=== PATIENT | male | born 2000 | race Caucasian/White ===

== ENCOUNTER 2024-11-23 01:16 | Inpatient (IN) | payer MEDICAID ==
[~2024-11-23] VITALS: Ht 165.1 cm; Wt 66.2 kg
[2024-11-23 01:54] LABS: PLATELET COUNT (AUTO) 254 K/uL (150-450); RED BLOOD CELL COUNT(AUTO) 4.55 MIL/uL (4.50-5.90); RED CELL DISTRIBUTION WIDTH 13.7 % (11.5-14.5); WHITE BLOOD COUNT (AUTO) 6.8 K/uL (4.5-11.0)
[2024-11-23 02:12] LABS: CALCIUM, TOTAL 8.2 mg/dL (8.8-10.5); CREATININE 0.90 mg/dL (0.60-1.30); GLOMERULAR FILTR. RATE CALC > 60 mL/min (>60); GLUCOSE,RANDOM 100 mg/dL (70-110); SODIUM SERUM 140 mmol/L (136-145); UREA NITROGEN, BLOOD 17 mg/dL (7-18)
[2024-11-23 02:55] LABS: COVID AG,FIA SOURCE NASAL SWAB
[2024-11-23 03:20] LABS: SARS-COV2 (COVID) ANTIGEN,FIA Negative (Negative)
[2024-11-23 13:45] VITALS: O2SAT 100
[2024-11-23 14:12] LABS: APPEARANCE,URINE CLEAR (CLEAR); GLUCOSE, URINE (UA) NEGATIVE (NEGATIVE); LEUKOCYTE ESTERASE ,URINE NEGATIVE (NEGATIVE); NITRATE,URINE NEGATIVE (NEGATIVE); OCCULT BLOOD,URINE NEGATIVE (NEGATIVE); PH,URINE DRUG SCREEN 7.0 (5.0-8.0); SPECIFIC GRAVITIY, URINE 1.013 (1.003-1.030)
[2024-11-23 14:18] LABS: ALCOHOL, URINE DRUG SCREEN NEGATIVE (NEGATIVE); AMPHET/METH SCREEN,URINE NEGATIVE (NEGATIVE); BARBITURATE SCREEN, URINE NEGATIVE (NEGATIVE); CANNABINOID SCREEN,URINE POSITIVE (NEGATIVE); COCAINE SCREEN,URINE NEGATIVE (NEGATIVE); METHADONE SCREEN, URINE NEGATIVE (NEGATIVE)
[2024-11-23 16:54] VITALS: BP 104/64; PULSE 71; RESP 16; TEMP 97.5; O2SAT 97
[2024-11-23 20:31] VITALS: BP 102/66; PULSE 80; RESP 17; TEMP 97.8; O2SAT 98
[2024-11-24] MEDS ORDERED: GuaiFENesin/D-METHORPHAN [SUGAR-FREE] 200-20MG/10 ML SYRUP UDCUP PO PRN (06:15)
[2024-11-24] MEDS ORDERED: MAGNESIUM HYDROXIDE SUSPENSION 30 ML UDCUP PO PRN (06:15)
[2024-11-24] MEDS ORDERED: LOPERAMIDE HCL 2 MG CAPSULE PO PRN (06:15)
[2024-11-24] MEDS ORDERED: MAG HYDROX/ALUMINUM HYD/SIMETH ES 30 ML SUSPENSION UDCUP PO PRN (06:15)
[2024-11-24] MEDS ORDERED: ALBUTEROL SULFATE HFA 90 MCG/PUFF 8 GM INHALER IH PRN (06:15)
[2024-11-24] MEDS ORDERED: PETROLATUM,WHITE 28 GM JELLY TP PRN (06:15)
[2024-11-24] MEDS ORDERED: ONDANSETRON 4 MG TABLET PO PRN (06:15)
[2024-11-24] MEDS ORDERED: DOCUSATE SODIUM 100 MG CAPSULE PO PRN (06:15)
[2024-11-24] MEDS ORDERED: LORazepam 2 MG/ML VIAL ONE (08:34)
[2024-11-24 08:45] VITALS: BP 103/66; PULSE 70; RESP 16; TEMP 97.4; O2SAT 100
[2024-11-24] MEDS: LORazepam 2 MG/ML VIAL IM ONE (09:06)
[2024-11-24 10:32] LABS: CHOL/HDL RATIO 2.2 (4.2-7.3); LDL CHOL (CALC.) 48.0 mg/dL (0-130)
[2024-11-24 20:14] VITALS: BP 115/70; PULSE 75; RESP 17; TEMP 97.5; O2SAT 100
[2024-11-25 08:05] VITALS: BP 108/83; PULSE 82; RESP 16; TEMP 97.9; O2SAT 100
[2024-11-25 09:16] LABS: CHOL/HDL RATIO 2.4 (4.2-7.3); LDL CHOL (CALC.) 66.0 mg/dL (0-130)
[2024-11-25] MEDS ORDERED: LORazepam 2 MG/ML VIAL ONE (11:02)
[2024-11-25] MEDS: LORazepam 2 MG/ML VIAL IM ONE (11:17)
[2024-11-25 20:01] VITALS: RESP 17
[2024-11-25] MEDS: ZOLPIDEM TARTRATE 10 MG TABLET PO PRN (20:56)
[2024-11-26 08:08] VITALS: BP 125/74; PULSE 81; RESP 17; TEMP 97.4; O2SAT 98
[2024-11-26] MEDS ORDERED: LORazepam 2 MG/ML VIAL ONE (09:40)
[2024-11-26] MEDS: LORazepam 2 MG/ML VIAL IM ONE ×3 (09:52→18:03)
[2024-11-26 20:09] VITALS: BP 124/74; PULSE 91; RESP 16; TEMP 97.7; O2SAT 100
[2024-11-26 21:02] VITALS: BP 104/67; PULSE 70; RESP 16; TEMP 97.6; O2SAT 99
[2024-11-27] MEDS ORDERED: NICOTINE 14 MG/24 HOUR PATCH TD PRN (06:30)
[2024-11-27 08:12] VITALS: BP 111/69; PULSE 101; RESP 18; TEMP 97.7; O2SAT 98
[2024-11-27] MEDS ORDERED: LORazepam 2 MG/ML VIAL ONE (11:04)
[2024-11-27] MEDS: LORazepam 2 MG/ML VIAL IM ONE (11:29)
[2024-11-27 20:32] VITALS: BP 96/98; PULSE 125; RESP 16; TEMP 98.2; O2SAT 98
[2024-11-28 08:59] VITALS: BP 111/70; PULSE 86; RESP 17; TEMP 97.4; O2SAT 99
[2024-11-28] MEDS: NICOTINE POLACRILEX 2 MG LOZENGE PO PRN (18:53)
[2024-11-28 20:01] VITALS: BP 114/59; PULSE 70; RESP 16; TEMP 97.6; O2SAT 100
[2024-11-29 08:03] VITALS: BP 116/66; PULSE 64; RESP 16; TEMP 97.8; O2SAT 99
[2024-11-29 20:05] VITALS: BP 103/63; PULSE 93; RESP 18; TEMP 97.3; O2SAT 99
[2024-11-30 08:21] VITALS: BP 130/79; PULSE 109; RESP 16; TEMP 97.5; O2SAT 98
[2024-11-30] MEDS: NICOTINE 14 MG/24 HOUR PATCH TD PRN (13:40)
[2024-11-30 20:05] VITALS: BP 124/70; PULSE 99; RESP 18; TEMP 97.3
[2024-12-01 08:51] VITALS: BP 130/77; PULSE 86; RESP 18; TEMP 97.5; O2SAT 99
[2024-12-01 20:09] VITALS: BP 118/72; PULSE 70; RESP 16; TEMP 97.9; O2SAT 99
[2024-12-02 08:12] VITALS: BP 114/66; PULSE 86; RESP 18; TEMP 97.7; O2SAT 97
[2024-12-02 12:53] VITALS: RESP 18
[2024-12-02] MEDS: IBUPROFEN 400 MG TABLET PO PRN (12:53)
[2024-12-02 13:53] VITALS: RESP 18
[2024-12-02 20:35] VITALS: BP 115/62; PULSE 66; RESP 18; TEMP 97.5; O2SAT 100
[2024-12-03 08:14] VITALS: BP 120/74; PULSE 107; RESP 17; TEMP 97.4; O2SAT 97
[2024-12-03 20:36] VITALS: BP 131/84; PULSE 97; RESP 17; TEMP 98.6; O2SAT 99
[2024-12-04 08:38] VITALS: BP 113/77; PULSE 90; RESP 15; TEMP 97.6; O2SAT 99
[2024-12-04 20:14] VITALS: BP 119/77; PULSE 74; RESP 18; TEMP 97.8; O2SAT 97
[2024-12-05 08:43] VITALS: BP 123/70; PULSE 94; RESP 18; TEMP 97.7; O2SAT 99
[2024-12-05 20:10] VITALS: BP 116/66; PULSE 73; RESP 18; TEMP 97.8; O2SAT 100
[2024-12-05 22:19] VITALS: BP 133/79; PULSE 60; RESP 18; TEMP 97.8; O2SAT 100
[2024-12-05] MEDS: ACETAMINOPHEN 325 MG TABLET PO PRN (22:19)
[2024-12-06 03:11] VITALS: RESP 16
[2024-12-06 08:18] VITALS: BP 117/75; PULSE 90; RESP 18; TEMP 96.7; O2SAT 95
[2024-12-06 17:34] VITALS: RESP 18
[2024-12-06 18:35] VITALS: RESP 18
[2024-12-06 20:31] VITALS: BP 120/72; PULSE 64; RESP 17; TEMP 97.2; O2SAT 100
[2024-12-07 08:57] VITALS: BP 117/68; PULSE 89; RESP 18; TEMP 96.9; O2SAT 98
[2024-12-07 15:31] VITALS: RESP 17
[2024-12-07 20:16] VITALS: BP 110/80; PULSE 96; RESP 19; TEMP 97.7; O2SAT 100
[2024-12-08] VITALS (11 sets, daily range): BP systolic 111–130; BP diastolic 69–87; PULSE 68–82; RESP 16–18; TEMP 97.3–98.1; O2SAT 97–100
[2024-12-08] MEDS: BACITRACIN 28 GM OINTMENT TP SCH (13:38)
[2024-12-09 08:07] VITALS: BP 120/80; PULSE 98; RESP 16; TEMP 97.6; O2SAT 99
[2024-12-09] MEDS ORDERED: OLAN10TA74 PO (11:14)
[2024-12-09] MEDS ORDERED: OLAN5TAB52 PO (11:14)
== END 2024-12-09 14:00 | disposition home or self-care (01) | DRG 750 ==
LOC: EMS 01:19 → B3A 14:24 → EMS 14:25 → B3A 14:25
PROVIDERS: ADMIT Psychiatry & Neurology Child & Adolescent Psychiatry; ATTEND Psychiatry & Neurology Child & Adolescent Psychiatry
PROC: GZ52ZZZ Individual Psychotherapy, Cognitive (ICD-10-PCS; 2024-11-25)
PROC: GZHZZZZ Group Psychotherapy (ICD-10-PCS; principal; 2024-11-29)
DX: F20.0 Paranoid schizophrenia (principal); F79 Unspecified intellectual disabilities; F12.10 Cannabis abuse, uncomplicated; F41.9 Anxiety disorder, unspecified; G47.00 Insomnia, unspecified
CPT/HCPCS: 80048; 80061; 80307; 81003; 83036; 84439; 84443; 85025; 99285; G0480; J1200; J1630; J2060